=== PATIENT | female | born 1955 | race African-American/Black ===

== ENCOUNTER → 2024-07-25 | Day surgery (SDC) | payer MEDICARE, MEDICAID ==
[~2024-07-25] VITALS: Ht 162.6 cm; Wt 73.5 kg
[~2024-07-25] MED LIST: BUPIVACAINE HCL/PF 0.5% (5MG/ML) 10ML ONE; FAMOTIDINE 20MG/2ML VIAL IV ONE; GLYCOPYRROLATE 0.2 MG/ML 2ML VIAL ONE; HYDROMORPHONE HCL/PF 1MG/ML INJ IV PRN; HYDROMORPHONE HCL/PF 1MG/ML INJ ONE; LACTATED RINGERS 1,000 ML IV SCH; NEOSTIGMINE METHYLSULFATE 1MG/ML 10 ML VIAL ONE; ONDANSETRON HCL 4MG/2ML INJ IV PRN; SKIN ADHESIVE 0.7 GM EA TOP ONE; SUGAMMADEX SODIUM 200MG/2ML VIAL IV ONE
[2024-07-25 13:35] VITALS: BP 134/99; PULSE 66; RESP 21
[2024-07-25] MEDS: ACETAMINOPHEN WITH CODEINE 300/30MG TABLET PO NR (13:35)
== END | disposition home or self-care (01) ==
LOC: OR 05:40
PROVIDERS: ATTEND Surgery
DX: D17.1 Benign lipomatous neoplasm of skin and subcutaneous tissue of trunk (principal); R19.04 Left lower quadrant abdominal swelling, mass and lump; M19.90 Unspecified osteoarthritis, unspecified site; Z79.899 Other long term (current) drug therapy; Z98.890 Other specified postprocedural states
CPT/HCPCS: 21931; 93005; 88304; J0665; J1308; J3490; J1171; J2710